=== PATIENT | male | born 1985 | race Asian ===

== ENCOUNTER 2023-04-12 17:41 | Emergency (ER) | payer OTHER ==
[~2023-04-12] VITALS: Ht 167.6 cm; Wt 77.1 kg
[2023-04-12 18:21] VITALS: BP 130/90; PULSE 86; RESP 22; TEMP 98; O2SAT 98
[2023-04-12] MEDS ORDERED: fentaNYL citrate 0.05 MG/ML VIAL IM ONE (18:25)
[2023-04-12] MEDS ORDERED: ONDANSETRON 4 MG/2 ML VIAL IM ONE (18:25)
[2023-04-12] MEDS ORDERED: ONDANSETRON 4 MG/2 ML VIAL IVP ONE (18:45)
[2023-04-12] MEDS ORDERED: fentaNYL citrate 0.05 MG/ML VIAL IVP ONE (18:45)
[2023-04-12] MEDS ORDERED: MORPHINE SULFATE 4 MG/ML SYR IVP ONE (20:30)
[2023-04-12] MEDS ORDERED: KETOROLAC 30 MG/ML VIAL IM ONE (22:50)
[2023-04-12] MEDS ORDERED: NAPR-54 PO (23:34)
[2023-04-12] MEDS ORDERED: ACET-8905 PO (23:34)
[2023-04-13 00:18] VITALS: BP 127/89; PULSE 80; RESP 15; TEMP 97.9; O2SAT 97
== END 2023-04-13 00:18 | disposition home or self-care (01) ==
LOC: MED 17:41
DX: S42.292A Other displaced fracture of upper end of left humerus, initial encounter for closed fracture (principal); Z79.899 Other long term (current) drug therapy; Z79.1 Long term (current) use of non-steroidal anti-inflammatories (NSAID); W18.39XA Other fall on same level, initial encounter; Y92.89 Other specified places as the place of occurrence of the external cause; Y93.89 Activity, other specified; Y99.8 Other external cause status
CPT/HCPCS: 72170; 73030; 73200; 99285; J1885; J2270; J2405; J3010; Q0092